=== PATIENT | female | born 1990 | race American Indian/Alaskan Native ===

== ENCOUNTER → 2019-08-31 17:03 | Outpatient (CLI) | payer OTHER, SELFPAY ==
--- NOTE | 2019-08-31 17:08 | DI.US.S_ITS ---
PROCEDURE: US PELVIC COMPLETE INDICATIONS: PELVIC AND PERINEAL PAIN TECHNIQUE: Real-time scanning was performed of the pelvic organs, with image documentation. Additional endovaginal scanning was necessary due to incomplete visualization of the adnexal and endometrial structures by transabdominal scanning. COMPARISON: None. FINDINGS: Transabdominal scanning: A mild amount of free pelvic fluid is seen, which is considered to be within physiologic limits. Limited scanning through the kidneys shows no hydronephrosis. Endovaginal scanning: Uterus: Uterus is normal in size at 8.7 x 3.4 x 3.9 cm. The endometrium measures 5 mm in combined thickness. An IUD is seen at its expected location. Ovaries: The right ovary measures 3.9 x 2.6 x 1.9 cm. The left ovary measures 5.4 x 3.7 x 3.7 cm and demonstrates a complex cyst that measures up to 4.4 cm. No adnexal masses are seen. IMPRESSION: Left ovarian complex cyst measuring 4.4 cm. At clinical discretion, a followup pelvic ultrasound is suggested in 6 weeks to assure resolution/ improvement. An IUD is seen at its expected location. Dictated by: Live Conde M.D. on 08/31/2019 at 16:49 Approved by: Live Conde M.D. on 08/31/2019 at 16:51
== END ==
PROVIDERS: Family Provider Obstetrics & Gynecology; PCP Obstetrics & Gynecology; Referring Provider Physician Assistant; Visit Provider Physician Assistant
DX: R10.2 Pelvic and perineal pain (principal); N83.292 Other ovarian cyst, left side; Z97.5 Presence of (intrauterine) contraceptive device
CPT/HCPCS: 76830; 76856

== ENCOUNTER → 2020-01-23 11:08 | Outpatient (CLI) | payer OTHER, SELFPAY ==
--- NOTE | 2020-01-23 | DI.US.S_ITS ---
PROCEDURE: US PELVIC COMPLETE INDICATIONS: Deep dyspareunia TECHNIQUE: Real-time scanning was performed of the pelvic organs, with image documentation. Additional endovaginal scanning was necessary due to incomplete visualization of the adnexal and endometrial structures by transabdominal scanning. COMPARISON: [facility], CT, ABD/PELVIS W/CON (PNL), 02/09/2012, 16:08. [facility], US, US PELVIC COMPLETE, 08/31/2019, 17:25. FINDINGS: Transabdominal scanning: Limited scanning through the kidneys shows no hydronephrosis. No pathologic free abdominal or pelvic fluid. Endovaginal scanning: Uterus: Uterus is normal in size at 3.8 x 5.0 x 8.0 cm. The endometrium measures 2.7 mm in combined thickness. Ovaries: The right ovary measures 2.1 x 2.1 x 3.9 cm and the left measures 2.1 x 2.3 x 4.1 cm. IMPRESSION: Normal appearing uterus and ovaries bilaterally. No evidence for dominant ovarian cyst or torsion. Source of current pain is not identified. Dictated by: Darrius Swan M.D. on 01/23/2020 at 12:49 Approved by: Darrius Swan M.D. on 01/23/2020 at 12:52
== END ==
PROVIDERS: Family Provider Obstetrics & Gynecology; PCP Family Medicine; Referring Provider Family Medicine; Visit Provider Family Medicine
DX: N94.12 Deep dyspareunia (principal)
CPT/HCPCS: 76830; 76856

== ENCOUNTER → 2020-04-09 11:27 | Outpatient (CLI) | payer OTHER, SELFPAY ==
[2020-04-09 12:07] LABS: Bacteria Urine None Seen; RBC Urine None Seen (0-5/HPF); WBC Urine None Seen (0-5/HPF)
[2020-04-09 13:21] LABS: Appearance Urine UA CLEAR; Bilirubin Urine UA NEGATIVE (NEGATIVE); Color Urine UA YELLOW; Glucose Urine UA NEGATIVE (Negative); Ketones Urine UA NEGATIVE (NEGATIVE); Leukocyte Esterase Urine UA TRACE (NEGATIVE); Nitrite Urine UA NEGATIVE (Negative); Occult Blood Urine UA NEGATIVE (Negative); Protein Urine UA NEGATIVE (Negative); Urobilinogen Urine UA 0.2 E.U./dL (0.2)
[2020-04-09 13:24] LABS: Culture Indicated Urine Cult Not Indicated; Urine Comments Microscopic Normal
[2020-04-09 13:26] LABS: Add Manual Diff / Slide Review NO; Basophils Absolute Auto 0 /uL (0-100); Basophils Percent Auto 0.6 % (0-2); Eosinophils Absolute Auto 100 /uL (0-450); Eosinophils Percent Auto 2.1 % (2-4); Hematocrit 38.8 % (36-46); Hemoglobin 13.4 g/dL (12.0-16.0); Lymphocytes Absolute Auto 2300 /uL (1100-4500); Lymphocytes Percent Auto 37.9 % (25-40); Mean Corpuscular HGB Conc 34.6 % (30-36); Mean Corpuscular Hemoglobin 30.8 PG (26-34); Monocytes Absolute Auto 500 /uL (0-900); Monocytes Percent Auto 7.6 % (3-14); Neutrophils Absolute Auto 3100 /uL (1500-7000); Neutrophils Percent Auto 51.8 % (50-75); Platelet Count 371 X10^3/uL (150-400); Red Blood Cell Count 4.36 X10^6/uL (4.0-5.2); Red Cell Distribution Width 12.7 % (11.6-14.8)
[2020-04-09 13:38] LABS: Alanine Aminotransferase 43 IU/L (<35); Albumin 4.3 g/dL (3.5-5.0); Alkaline Phosphatase 113 U/L (38-126); Aspartate Aminotransferase 40 IU/L (14-36); BUN Creatinine Ratio 22.5 (6-22); Bilirubin Total 0.2 mg/dL (0.2-1.3); Blood Urea Nitrogen 16 mg/dL (7-17); Calcium 9.3 mg/dL (8.4-10.2); Carbon Dioxide 27 mmol/L (22-32); Chloride 105 mmol/L (98-107); Estimated Glomerular Filt Rate > 60.0 mL/min (>60); Globulin 4.4 g/dL (1.7-4.1); Glucose 100 mg/dL (70-100); HEMOLYSIS < 15 (0-50); Potassium 3.8 mmol/L (3.4-5.1); Sodium 138 mmol/L (137-145); Total Protein 8.7 g/dL (6.3-8.2)
[2020-04-09 13:54] LABS: Erythrocyte Sedimentation Rate 19 MM/HR (0-20)
[2020-04-09 16:26] LABS: Creatinine Urine Random 33.8 mg/dL
[2020-04-09 16:35] LABS: Microalbumin Urine Random < 0.6 mg/dL (0-1.6)
[2020-04-10 06:30] LABS: Complement C3 90 mg/dL (82-167); Immunoglobulin G, Quantitative 2576 mg/dL (586-1602)
[2020-04-10 14:28] LABS: Albumin 3.6 g/dL (2.9-4.4); Alpha-1-Globulin 0.2 g/dL (0.0-0.4); Alpha-2-Globulin 0.6 g/dL (0.4-1.0); Gamma Globulin 2.6 g/dL (0.4-1.8); Globulin Total 4.3 g/dL (2.2-3.9); Protein, Total 7.9 g/dL (6.0-8.5)
[2020-04-10 18:47] LABS: DNA (DS) Antibody <1 IU/mL (0-9)
[2020-04-11 19:37] LABS: ANA Screen, IFA Positive (.); Speckled Pattern >1:1280 (.)
[2020-04-12 08:36] LABS: Dilute Russell Viper Venom 34.3 sec (0.0-47.0); Lupus Reflex Interpretation Comment: (.); PTT-LA 38.5 sec (0.0-51.9)
== END ==
PROVIDERS: Family Provider Obstetrics & Gynecology; PCP Family Medicine; Referring Provider Family Medicine; Visit Provider Family Medicine
DX: M32.9 Systemic lupus erythematosus, unspecified (principal)
CPT/HCPCS: 36415; 80053; 81001; 82043; 82570; 82784; 84155; 84165; 85025; 85598; 85610; 85613; 85651; 85670; 85730; 86038; 86146; 86147; 86160; 86225

== ENCOUNTER → 2020-10-08 08:36 | Outpatient (CLI) | payer OTHER, SELFPAY | PROVIDERS: Family Provider Obstetrics & Gynecology; PCP Family Medicine; Visit Provider Physician Assistant | DX: N39.0 Urinary tract infection, site not specified (principal) | CPT/HCPCS: 87086 ==

== ENCOUNTER 2020-10-22 20:54 | Emergency (ER) | payer OTHER, SELFPAY ==
[2020-10-22 20:58] VITALS: BP 133/88; PULSE 69; RESP 18; TEMP 36.9; O2SAT 100
--- NOTE | 2020-10-22 22:00 | ED_ITS ---
HPI - Wound/Laceration General Chief Complaint: Wound/Laceration Stated Complaint: cut rt index finger Time Seen by Provider: 10/22/20 21:39 Source: patient Mode of arrival: Ambulatory History of Present Illness HPI narrative: Patient is a 30-year-old female here for evaluation of a cut to the back of her right index finger. She states she was opening a tin can. She does need an updated tetanus shot. Other than covering with a bandage no intervention prior to arrival. Related Data Home Medications Medication Instructions Recorded Confirmed levonorgestrel 20 mcg/24 hours (6 52 mg INTRAU #0 06/22/16 10/08/20 yrs) 52 mg intrauterine device (Mirena) Previous Rx's Medication Instructions Recorded phenazopyridine 100 mg tablet 100 mg PO TID PRN #6 tab 10/08/20 (Pyridium) Allergies Allergy/AdvReac Type Severity Reaction Status Date / Time No Known Drug Allergies Allergy Unverified 10/08/20 08:06 Review of Systems Musculoskeletal Musculoskeletal: Denies tingling Comments: Cut to back of right index finger Integumentary/Breasts Comments: Cut the right index finger Neurologic Neurologic: Denies tingling Hematologic/Lymphatic On Anticoagulants: No Patient History Medical History Acute labyrinthitis Surgical History Status post delivery (01/04/07) Social History Smoking Status: Current every day smoker Smoking Status: Current every day smoker Exam Initial Vital Signs Initial Vital Signs: Vital Signs Temperature 98.4 F 10/22/20 20:58 Pulse Rate 69 10/22/20 20:58 Respiratory Rate 18 10/22/20 20:58 Blood Pressure 133/88 10/22/20 20:58 Pulse Oximetry 100 10/22/20 20:58 Const General: cooperative HENMT Head: normal to inspection and normocephalic Cardio Pulses: radial pulses present on the right Skin Other: Patient with a 2 cm laceration on the dorsum of the right index finger over the PIP joint. Neuro General: patient alert, patient awake and patient oriented x3 Sensory Exam: no sensory deficits noted Extrem Other: Patient has full range of motion of the PIP and PIP and MCP joint of the right index finger. Deep evaluation the laceration does not show any tendon involvement. She is able to flex and extend both active and passive without difficulty. Procedures Laceration Repair Laceration 1: Site: hand Side (If applicable): right Size (cm): 2 Description: linear Depth: simple, single layer Local Anesthetic: lidocaine 1% and with bicarb Amount of anesthesia used (mL): 4 Pre-repair: wound explored, irrigated extensively and deep structures intact Skin layer closed with: nylon Size (cm): 4-0 Number of sutures: 6 Technique: simple, interrupted Course Orders Ordered: Discontinued Medications Bacitracin (Bacitracin Oint 0.9 Gm Pckt) 1 applic TOP NOW ONE Stop: 10/22/20 22:03 Last Admin: 10/22/20 22:08 Dose: 1 applic Documented by: BILLIE Diphtheria/Tetanus/Acell Pertussis (Tet,Diph,Pertuss(Acell),Vac/Pf 0.5 Ml Syringe) 0.5 ml IM .ONCE ONE Stop: 10/22/20 21:07 Last Admin: 10/22/20 22:21 Dose: 0.5 ml Documented by: ALVAREZ Lidocaine/Sodium Bicarbonate (Lido 1%/Sod Bicarb 8.4% (10ml) 10 Ml Syringe) 10 ml INJ NOW ONE Stop: 10/22/20 22:03 Last Admin: 10/22/20 22:08 Dose: 10 ml Documented by: BILLIE Vital Signs Vital signs: Vital Signs - 8 hr 10/22/20 20:58 Temperature 98.4 F Pulse Rate 69 Respiratory Rate 18 Blood Pressure 133/88 Pulse Oximetry 100 MDM - Wound/Laceration Medical Records Medical records narrative: Tetanus was updated. Laceration was closed as pasha cribed above. Deep structures were intact. She was given care instructions and return precautions. She expressed understanding and agreement. Discharge Plan Departure Patient Disposition: Home Clinical Impression: Laceration Instructions: DI for Laceration Repair Activity Restrictions/Additional Instructions: The stitches do need to be removed in 7-10 days. Until then I recommended topical antibiotic ointment. You can wash your hands like normal in shower like normal however do not soak your hands and anything until the stitches are removed. Contact your primary provider for a follow-up. Return to the emergency department for any new or worsening symptoms Prescriptions: No Action phenazopyridine [Pyridium] 100 mg tablet 100 mg PO TID PRN (Reason: pain) Qty: 6 RF: 0 levonorgestrel [Mirena] 1 EACH intrauterine device 52 mg INTRAU Qty: 0 RF: 0 Referrals: Sarah Smith MD [Primary Care Provider] - Stand Alone Forms: Work Release Note
[2020-10-22] MEDS: BACITRACIN OINT 0.9 GM PCKT 1 APPLIC TOP (22:08)
[2020-10-22] MEDS: LIDO 1%/SOD BICARB 8.4% (10ML) 10 ML SYRINGE INJ (22:08)
[2020-10-22] MEDS: TET,DIPH,PERTUSS(ACELL),VAC/PF 0.5 ML SYRINGE IM (22:21)
== END 2020-10-22 22:34 | disposition home or self-care (01) ==
PROVIDERS: Emergency Provider Emergency Medicine; Family Provider Obstetrics & Gynecology; PCP Family Medicine
DX: S61.210A Laceration without foreign body of right index finger without damage to nail, initial encounter (principal); W26.8XXA Contact with other sharp object(s), not elsewhere classified, initial encounter; Z23 Encounter for immunization
CPT/HCPCS: 12041; 90471; 99283; 90715

== ENCOUNTER → 2022-01-13 08:34 | Outpatient (CLI) | payer OTHER, SELFPAY ==
--- NOTE | 2022-01-13 08:37 | DI.US.S_ITS ---
PROCEDURE: US PELVIC COMPLETE INDICATIONS: IUD placement TECHNIQUE: Real-time scanning was performed of the pelvic organs, with image documentation. Additional endovaginal scanning was necessary due to incomplete visualization of the adnexal and endometrial structures by transabdominal scanning. COMPARISON: [facility], , PELVIC COMPLETE, 01/23/2020, 11:42. FINDINGS: Uterus: Uterus measures 7.7 x 3.8 x 5.4 centimeters. IUD is visualized in the endometrium. The endometrium measures 2 millimeters. Ovaries: Right ovary measures a volume of 12.5 cc, with a dominant follicle measuring 2.1 centimeters. The left ovary measures a volume of 8 cc. Other: No pathologic free abdominal or pelvic fluid. IMPRESSION: Appropriate positioning of IUD. No other significant sonographic abnormality in the pelvis. We strive to produce accurate, complete, and clear reports of imaging services. To assist us in improving patient care, this report was composed using standard report templates and voice recognition software. Therefore, it may contain abnormal punctuation, insertions and/or omissions. Occasional wrong-word or sound-alike substitutions may occur. Though we review the report and make efforts to correct it, we do recommend that the report be read carefully in proper context to recognize any text inaccuracies. Dictated by: Steve Gutierrez M.D. on 01/13/2022 at 9:25 Approved by: Steve Gutierrez M.D. on 01/13/2022 at 9:27
== END ==
PROVIDERS: Family Provider Obstetrics & Gynecology; PCP Family Medicine; Referring Provider Obstetrics & Gynecology; Visit Provider Obstetrics & Gynecology
DX: Z30.431 Encounter for routine checking of intrauterine contraceptive device (principal)
CPT/HCPCS: 76830; 76856

== ENCOUNTER → 2022-01-19 16:20 | Outpatient (CLI) | payer OTHER, SELFPAY ==
[2022-01-20 00:19] LABS: Urine N gonorrhoeae NOT DETECTED
[2022-01-20 01:49] LABS: Urine Chlamydia NOT DETECTED
== END ==
PROVIDERS: Family Provider Obstetrics & Gynecology; PCP Family Medicine; Visit Provider Obstetrics & Gynecology
DX: Z11.3 Encounter for screening for infections with a predominantly sexual mode of transmission (principal); R35.0 Frequency of micturition; N89.8 Other specified noninflammatory disorders of vagina
CPT/HCPCS: 87077; 87086; 87186; 87491; 87591

== ENCOUNTER → 2022-08-03 11:13 | Outpatient (CLI) | payer OTHER, SELFPAY ==
--- NOTE | 2022-08-03 | DI.RAD.S_ITS ---
PROCEDURE: XR HAND RT MIN 3V INDICATIONS: HAND PAIN TECHNIQUE: 3 views of the hand(s) acquired. COMPARISON: None. FINDINGS: Bones: No fractures or dislocations. Carpal bones are normally aligned. No suspicious bony lesions. Soft tissues: No suspicious soft tissue calcifications. IMPRESSION: Unremarkable radiographic examination of right hand. Dictated by: Varinder Stephen M.D. on 08/03/2022 at 17:42 Approved by: Varinder Stephen M.D. on 08/03/2022 at 17:43
--- NOTE | 2022-08-03 | DI.RAD.S_ITS ---
PROCEDURE: XR HAND LT MIN 3V INDICATIONS: HAND PAIN TECHNIQUE: 3 views of the hand(s) acquired. COMPARISON: [facility], CR, XR HAND RT MIN 3V, 08/03/2022, 11:18. FINDINGS: Bones: No fractures or dislocations. Carpal bones are normally aligned. No suspicious bony lesions. Soft tissues: No suspicious soft tissue calcifications. IMPRESSION: No left hand fracture or dislocation. No finding to explain patient's symptoms. Dictated by: Varinder Stephen M.D. on 08/03/2022 at 17:43 Approved by: Varinder Stephen M.D. on 08/03/2022 at 17:45
== END ==
PROVIDERS: Family Provider Obstetrics & Gynecology; PCP Family Medicine; Referring Provider Family Medicine; Visit Provider Family Medicine
DX: M79.641 Pain in right hand (principal)
CPT/HCPCS: 73130